=== PATIENT | female | born 1975 | race Caucasian/White ===

== ENCOUNTER → 2021-10-17 | Outpatient (CLI) | payer OTHER ==
--- NOTE | 2021-10-22 15:05 | REPMRS ---
Patient History The patient states she has not had a clinical breast exam in over a year. Patient is postmenopausal and has history of other cancer at age 40. Family history of breast cancer at age 50 in mother. Took hormonal contraceptives for 6 months. Took estrogen for 11 months. Tomosynthesis is performed. Volpara breast density is a. [facility] lifetime risk of breast cancer 18.4%. Covid vaccines 03/30/21 left arm. 05/01/21 left arm. Pt denied . Patient states no breast complaints today. Patient has signed MRS History Sheet. Digital Woman Screen Mammo: October 17, 2021 - Exam #: [id number] Bilateral CC and MLO view(s) were taken. Technologist: RT Jyotsna FINDINGS: There are scattered fibroglandular densities. There has been no change in the appearance of the mammogram from the prior studies. There is a mild amount of residual fibroglandular tissue which is fairly symmetric. There is no interval development of dominant mass, architectural distortion, or clustered microcalcification suggestive of malignancy. Assessment: BI-RADS/ACR category 1 mammogram. Negative Mammogram. Recommendation Routine screening mammogram in 1 year (for women over age 40). This mammogram was interpreted with the aid of an FDA-approved computer-aided dectection system. Electronically Signed By: Trey Mehta MD 10/22/21 [id number]
== END ==
LOC: M WHC 07:06
PROVIDERS: ATTEND Family Medicine
DX: Z12.31 Encounter for screening mammogram for malignant neoplasm of breast (principal); Z78.0 Asymptomatic menopausal state; Z85.9 Personal history of malignant neoplasm, unspecified; Z80.3 Family history of malignant neoplasm of breast

== ENCOUNTER → 2022-12-03 | Outpatient (CLI) | payer OTHER | LOC: M WHC 06:49 | PROVIDERS: ATTEND Family Medicine | DX: Z12.31 Encounter for screening mammogram for malignant neoplasm of breast (principal) ==